=== PATIENT | female | born 1955 | race Caucasian/White ===

== ENCOUNTER 2016-09-17 11:46 | Emergency (ER) | payer BC ==
[2016-09-17 11:57] VITALS: BP 128/85
[2016-09-17] MEDS ORDERED: Sodium Chloride 0.9% 10 ML Syringe FLUSH PRN ×2 (12:09→12:26)
--- NOTE | 2016-09-17 12:22 | EDM.PDOC ---
ED HISTORY OF PRESENT ILLNESS - General Chief Complaint: Respiratory Problem Stated Complaint: SOB Time Seen by Provider: 09/17/16 12:00 Source of Information: Reports: Patient History Limitations: Reports: No limitations - History of Present Illness INITIAL COMMENTS - FREE TEXT/NARRATIVE: Patient presents for evaluation and treatment of shortness of breath. Patient reports the shortness of breath started yesterday. She states it is worse with exertion. She also noticed an odd sensation, described as a pulling sensation, in her left hand traveling up to her left arm. She states that she noticed the sensation while showering yesterday and again today. She also reports some heartburn. She denies any chest pain, dizziness, lightheadedness, syncope, nausea or vomiting. Patient reports that she has had a history of PEs in the past. She states that her symptoms today feel similar to past PEs. Her last PE was in August 5 years ago. She states that she has been worked up for any blood clotting disorders but none have been found. She previously was on Coumadin for her PEs. patient for such she had bunion surgery with Dr. Faria in July. She was on Lovenox for 14 days after the surgery. She states since then she has been taking 325 mg aspirin twice a day. - Related Data Allergies/ADRs: Allergies Allergy/AdvReac Type Severity Reaction Status Date / Time No Known Allergies Allergy Verified 09/17/16 11:57 Home Meds: Home Meds Aspirin [Halfprin] 325 mg PO BID 08/03/16 [History] Escitalopram Oxalate 10 mg PO DAILY 08/03/16 [History] Multivitamin [Multivitamins] 1 tab PO DAILY 08/03/16 [History] Cyclobenzaprine [Flexeril] 10 mg PO TID PRN #40 tablet 08/04/16 [Rx] Hydrocodone/Acetaminophen [[place] 5-325 Tablet] 1 - 2 each PO Q6H PRN #40 tablet 08/04/16 [Rx] Apixaban [Eliquis] 5 mg PO BID #60 tablet 09/17/16 [Rx] Past Medical History HEENT History: Reports: Impaired vision Cardiovascular History: Reports: High cholesterol Respiratory History: Reports: PE, Other (see below) Other Respiratory History: cough, URI Gastrointestinal History: Reports: None Genitourinary History: Reports: Renal calculus, Other (see below) Other Genitourinary History: hematuria TALEND DEVELOPER History: Reports: None Neurological History: Reports: None Psychiatric History: Reports: Anxiety, Depression Endocrine/Metabolic History: Reports: None Hematologic History: Reports: Other (see below) Other Hematologic History: leukopenia, blood clotting disorder Immunologic History: Reports: None Oncologic (Cancer) History: Reports: None Dermatologic History: Reports: None - Past Surgical History Female Surgical History: Reports: Tubal ligation Musculoskeletal Surgical History: Reports: Arthroscopic knee, Other (see below) Other Musculoskeletal Surgeries/Procedures:: L bunionectomy, R bunionectomy in Jul 2016 Social & Family History - Tobacco Use Smoking Status *Q: Never Smoker Second Hand Smoke Exposure: No - Caffeine Use Caffeine Use: Reports: Coffee - Alcohol Use Days Per Week of Alcohol Use: 1 Number of Drinks Per Day: 2 Total Drinks Per Week: 2 - Recreational Drug Use Recreational Drug Use: No Drug Use in Last 12 Months: No ED ROS GENERAL - Review of Systems Review Of Systems: See Below Respiratory: Reports: Shortness of Breath Cardiovascular: Denies: Chest pain, Lightheadedness GI/Abdominal: Reports: Other (reports heartburn). Denies: Nausea, Vomiting Musculoskeletal: Reports: hand pain (pulling sensation to the left hand into left arm) Neurological: Denies: Dizziness, Syncope ED EXAM, GENERAL - Physical Exam Exam: See Below Exam Limited By: No limitations General Appearance: alert, WD/WN, no apparent distress Respiratory/Chest: no respiratory distress, lungs clear, normal breath sounds Cardiovascular: normal peripheral pulses, regular rate, rhythm, no murmur GI/Abdominal: soft, non tender Neurological: alert, oriented, normal cognition Psychiatric: normal affect, normal mood Skin Exam: Warm, Dry, Normal color EKG INTERPRETATION EKG Date: 09/17/16 Time: 13:15 Rhythm: NSR Rate (beats/min): 64 [place]: normal P-wave: present QRS: normal ST-T: normal QT: normal EKG Interpretation Comments: NSR at 64 bpm. Q waves in V1 and V2 - old anteroseptal OH. Reviewed by myself and Dr. Hargrove. Course - Vital Signs Last Recorded V/S: Last Vital Signs Temp 36.3 C 09/17/16 11:52 Pulse 85 09/17/16 11:52 Resp 22 H 09/17/16 11:52 BP 128/85 09/17/16 11:52 Pulse Ox 98 09/17/16 13:00 - Orders/Labs/Meds Orders: Active Orders 24 hr Category Date Time Status Cardiac Monitoring [RC] . DIRECTED Care 09/17/16 12:09 Active EKG 12 Lead [EKG Documentation Completion] [RC] STAT Care 09/17/16 13:05 Active Peripheral IV Care [RC] . DIRECTED Care 09/17/16 12:10 Active Peripheral IV Insertion Adult [OM.PC] Routine Oth 09/17/16 12:09 Ordered Labs: Laboratory Tests 09/17/16 09/17/16 09/17/16 Range/Units 12:15 12:15 12:15 WBC 4.94 (3.98-10.04) K/mm3 RBC 4.55 (3.98-5.22) M/mm3 Hgb 14.0 (11.2-15.7) gm/L Hct 41.9 (34.1-44.9) % MCV 92.1 (79.4-94.8) fl MCH 30.8 (25.6-32.2) pg MCHC 33.4 (32.2-35.5) g/dl RDW Std Deviation 45.7 (36.4-46.3) fL Plt Count 283 (182-369) K/mm3 MPV 10.3 (9.4-12.3) fl Neut % (Auto) 52.7 (34.0-71.1) % Lymph % (Auto) 31.6 (19.3-51.7) % [place] % (Auto) 11.9 (4.7-12.5) % Eos % (Auto) 3.2 (0.7-5.8) Baso % (Auto) 0.4 (0.1-1.2) % Neut # (Auto) 2.60 (1.56-6.13) K/mm3 Lymph # (Auto) 1.56 (1.18-3.74) K/mm3 [place] # (Auto) 0.59 H (0.24-0.36) K/mm3 Eos # (Auto) 0.16 (0.04-0.36) K/mm3 Baso # (Auto) 0.02 (0.01-0.08) K/mm3 PT 9.7 (8.0-13.0) SECONDS INR 0.90 D-Dimer, Quantitative 3.43 H (0.19-0.59) mg/L Sodium 141 (136-145) mEq/L Potassium 4.8 (3.5-5.1) mEq/L Chloride 106 (98-107) mEq/L Carbon Dioxide 28 (21-32) mEq/L Anion Gap 11.8 (5-15) BUN 16 (7-18) mg/dL Creatinine 1.1 H (0.55-1.02) mg/dL Est Cr Clr Drug Dosing 50.28 mL/min Estimated GFR (MDRD) 50 (>60) mL/min BUN/Creatinine Ratio 14.5 (14-18) Glucose 105 (80-115) mg/dL Calcium 9.2 (8.5-10.1) mg/dL Total Bilirubin 0.6 (0.2-1.0) mg/dL AST 23 (15-37) U/L ALT 30 (14-59) U/L Alkaline Phosphatase 100 (46-116) U/L Troponin I < 0.017 (0.00-0.056) ng/mL Total Protein 7.4 (6.4-8.2) g/dl Albumin 4.0 (3.4-5.0) g/dl Globulin 3.4 gm/dL Albumin/Globulin Ratio 1.2 (1-2) Meds: Medications Discontinued Medications Generic Name Dose Route Start Last Admin Trade Name Freq PRN Reason Stop Dose Admin Enoxaparin Sodium 68 mg 09/17/16 13:39 09/17/16 14:12 Lovenox SUBCUT 09/17/16 13:40 68 mg ONETIME ONE Administration Sodium Chloride 100 mls @ 80 mls/hr 09/17/16 12:30 09/17/16 13:01 Normal Saline IV 80 mls/hr ASDIRECTED PAMELA Administration Iopamidol 100 ml 09/17/16 12:26 09/17/16 13:01 Isovue-370 (76%) IVPUSH 09/17/16 12:27 70 ml ONETIME ONE Administration Sodium Chloride 10 ml 09/17/16 12:09 09/17/16 13:08 Saline Flush FLUSH 10 ml ASDIRECTED PRN Administration Keep Vein Open Sodium Chloride 10 ml 09/17/16 12:26 09/17/16 13:01 Saline Flush FLUSH 10 ml ONETIME PRN Administration IV FLUSH - Radiology Interpretation Free Text/Narrative:: CT PE study impression per Dr. Devine: 1. extensive pulmonary emboli within all 4 lobes. Mild bowing of the interventricular septum is seen compatible with mild right heart strain. 2. Incidental atelectasis or scarring within the right middle. 3. No additional abnormality is seen. CT Results Date: 09/17/16 - Re-Assessments/Exams Free Text/Narrative Re-Assessment/Exam: 09/17/16 13:40 Labs have returned. White blood count 4.9 forthcoming woman is 14.0 platelets are 283. INR 0.90, PT is 9.7. Troponin is within normal limits a less than 0.017. Sodium is 141, potassium is 4.8 and chloride is 106. Anion gap is 11.8. D dimer elevated at 3.43. Discussed case with Dr. Hargrove. Recommends subcutaneous Lovenox in the ED with a look with poorly as an outpatient. Discussed results with the patient. She elects to go with a new anticoagulant versus coumadin. Will give lovenox 1 subQ dose in the ER and have her start eliquis today. Patient has had a full work up for blood disorders. The case was discussed with Dr. Hargrove. We feel she would like benefit from further investigation into malignant causes. Recommends CT of the abdomen and pelvis. This should be done as an outpatient with the patient's primary care provider. I offered the patient admission. She feels comfortable going home with the subcutaneous Lovenox and oral elequis. I did educate her that she should be on these prophylactically for the rest of her life as this is her third pulmonary embolus. I will have her followup with her primary care provider for further management of this. Discharge instructions as documented. Departure - Departure Time of Disposition: 13:42 Disposition: Home, Self-Care 01 Condition: fair Clinical Impression: Pulmonary emboli Prescriptions: Apixaban [Eliquis] 5 mg PO BID #60 tablet Instructions: Pulmonary Embolism Referrals: Shanelle Solorzano PA [Primary Care Provider] - Forms: ED Department Discharge Additional Instructions: Follow-up this week with your PCP. Stop your aspirin. Start eliquis 10mg (2 tabs) PO bid x 7 days then 1 tab (5mg) PO bid. Please return to the ER should your symptoms change or worsen. - My Orders Last 24 Hours: My Active Orders 09/17/16 12:09 Cardiac Monitoring [RC] . DIRECTED Peripheral IV Insertion Adult [OM.PC] Routine 09/17/16 12:10 Peripheral IV Care [RC] . DIRECTED 09/17/16 13:05 EKG 12 Lead [EKG Documentation Completion] [RC] STAT - Assessment/Plan Last 24 Hours: My Active Orders 09/17/16 12:09 Cardiac Monitoring [RC] . DIRECTED Peripheral IV Insertion Adult [OM.PC] Routine 09/17/16 12:10 Peripheral IV Care [RC] . DIRECTED 09/17/16 13:05 EKG 12 Lead [EKG Documentation Completion] [RC] STAT
[2016-09-17] MEDS ORDERED: Iopamidol 755 Mg/ML 100 ML Bottle IVPUSH ONE (12:26)
[2016-09-17] MEDS ORDERED: Sodium Chloride 0.9% 100 ML IV SCH (12:30)
[2016-09-17] MEDS ORDERED: Enoxaparin 60 MG/0.6 ML Syringe SUBCUT ONE (13:39)
--- NOTE | 2016-09-17 13:42 | CT ---
Addendum: In the body of the report it states intra-articular septum which is a voice recognition error. This should read as follows: Mild bowing of the intraventricular septum.... Other portions of the dictation remain the same. --- Addendum1 above dictated on [09/26/2016 11:05] by [Ramírez Devine Hilton J.] --- --- Addendum1 above signed on [09/26/2016 11:06] by [Ramírez Devine Hilton J.] --- --- Original report below dictated on [09/17/2016 13:28] by [Ramírez Devine Hilton J.] --- --- Original report below signed on [09/17/2016 13:40] by [Ramírez Devine, Carlos Cornelius] --- CT chest Technique: Multiple axial sections through the chest are obtained. Intravenous contrast was utilized. Study has been performed as a pulmonary angiogram protocol. Comparison: No previous chest CT, previous chest x-ray of 03/10/16 is available. Findings: Multiple pulmonary emboli are seen. Pulmonary emboli involving the segmental and subsegmental branches in the left upper and left lower lung pulmonary arteries. Pulmonary embolism also noted within the segmental and subsegmental branches of the right upper and right lower lung arteries. These findings appear to be acute. Mild bowing of the intra-articular septum is seen compatible with mild right heart strain. Mediastinum and hilar regions show no adenopathy or mass. No pericardial thickening is seen. Small portion of the visualized upper abdominal structures are within normal limits. Minimal linear density within the right middle lobe compatible with slight atelectasis or scarring is seen. Lungs otherwise are clear. Bone window settings were reviewed which appear within normal limits for the patient's age. Impression: 1. Extensive pulmonary emboli within all four lobes. Mild bowing of the interventricular septum is seen compatible with mild right heart strain. 2. Incidental atelectasis or scarring within the right middle lobe. 3. No additional abnormality is seen. Results of the study were discussed by phone with Vonda Aldrich after the exam's completion at time 1:27 PM [facility] Diagnostic code #5 --- Addendum1 signed ---
== END 2016-09-17 14:15 | disposition home or self-care (01) ==
LOC: JD.ED 11:46
DX: I26.99 Other pulmonary embolism without acute cor pulmonale (principal); Z86.711 Personal history of pulmonary embolism; Z79.01 Long term (current) use of anticoagulants; E78.00 Pure hypercholesterolemia, unspecified; F32.9 Major depressive disorder, single episode, unspecified; F41.9 Anxiety disorder, unspecified; Z79.82 Long term (current) use of aspirin; Z79.899 Other long term (current) drug therapy
CPT/HCPCS: 36415; 71275; 80053; 84484; 85025; 85379; 85610; 93005; 96372; 99285; J1650; J7030; J7050; Q9967; 99284

== ENCOUNTER 2017-12-18 06:35 | Day surgery (SDC) | payer BC ==
[~2017-12-18 06:35] MED LIST: Lidocaine 1%/Sod Bicarbonate in NS 8.4% 1 ML Syringe IDERM PRN; Sodium Chloride 0.9% 10 ML Syringe FLUSH PRN
[2017-12-18] MEDS ORDERED: ceFAZolin 1 GM Vial ONE (06:53)
[2017-12-18] MEDS ORDERED: Propofol 200 MG/20 ML SDV ONE (06:53)
[2017-12-18] MEDS ORDERED: Midazolam 1 MG/ML 2 ML SDV ONE (06:53)
[2017-12-18] MEDS ORDERED: Ondansetron 4 MG/2 ML SDV ONE (06:53)
[2017-12-18] MEDS ORDERED: fentaNYL 250 MCG/5 ML SDV ONE (06:53)
[2017-12-18] MEDS ORDERED: Lactated Ringers 1,000 ML ONE (06:53)
[2017-12-18] MEDS ORDERED: Dexamethasone 4 MG/ML SDV ONE (06:53)
--- NOTE | 2017-12-18 07:33 | PCM.PREANE ---
Preanesthetic Assessment - Anesthesia/Transfusion/Family Hx Anesthesia History: Prior Anesthesia Without Reaction Family History of Anesthesia Reaction: No Transfusion History: No Prior Transfusion(s) - Review of Systems General: No Symptoms Pulmonary: Other (history of PEs x3. on eliquis, stopped 12/14/17) Cardiovascular: No Symptoms Gastrointestinal: No Symptoms Neurological: No Symptoms Other: Reports: Easy Bruising (on elequis), Anxiety - Physical Assessment NPO Status Date: 12/17/17 NPO Status Time: 19:00 Pulse: 72 O2 Sat by Pulse Oximetry: 98 Respiratory Rate: 16 Blood Pressure: 117/76 Temperature: 98.3 C Weight: 71 kg ASA Class: 2 Mental Status: Alert & Oriented x3 Airway Class: Mallampati = 2 Dentition: Reports: Normal Dentition Thyro-Mental Finger Breadths: 3 Mouth Opening Finger Breadths: 3 ROM/Head Extension: Full Lungs: Normal Respiratory Effort Cardiovascular: Regular Rate, Regular Rhythm - Lab Values: Laboratory Last Values MRSA (PCR) Negative 12/15/17 13:52 - Allergies Allergies/Adverse Reactions: Allergies Allergy/AdvReac Type Severity Reaction Status Date / Time No Known Allergies Allergy Verified 12/15/17 15:32 - Blood Blood Available: No Product(s) Available: None - Anesthesia Plan Pre-Op Medication Ordered: None - Acknowledgements Anesthesia Type Planned: General Anesthesia Pt an Appropriate Candidate for the Planned Anesthesia: Yes Alternatives and Risks of Anesthesia Discussed w Pt/Guardian: Yes Pt/Guardian Understands and Agrees with Anesthesia Plan: Yes PreAnesthesia Questionnaire HEENT History: Reports: Impaired Vision Cardiovascular History: Reports: High Cholesterol Respiratory History: Reports: PE, Other (See Below) Other Respiratory History: cough, URI Gastrointestinal History: Reports: None Genitourinary History: Reports: Renal Calculus, Other (See Below) Other Genitourinary History: hematuria GRID MAKER History: Reports: None Neurological History: Reports: None Psychiatric History: Reports: Anxiety, Depression Endocrine/Metabolic History: Reports: None Hematologic History: Reports: Other (See Below) Other Hematologic History: leukopenia, blood clotting disorder Immunologic History: Reports: None Oncologic (Cancer) History: Reports: None Dermatologic History: Reports: Other (See Below) Other Dermatologic History: cold sores - Past Surgical History Head Surgeries/Procedures: Reports: None Cardiovascular Surgical History: Reports: None Respiratory Surgical History: Reports: None GI Surgical History: Reports: Colonoscopy Female Surgical History: Reports: Tubal Ligation Male Surgical History: Reports: None Endocrine Surgical History: Reports: None Musculoskeletal Surgical History: Reports: Arthroscopic Knee, Other (See Below) Other Musculoskeletal Surgeries/Procedures:: L bunionectomy, R bunionectomy in Jul 2016 Oncologic Surgical History: Reports: None Dermatological Surgical History: Reports: None - SUBSTANCE USE Smoking Status *Q: Never Smoker Recreational Drug Use History: No - HOME MEDS Home Medications: Home Meds Escitalopram Oxalate 10 mg PO DAILY 08/03/16 [History] Multivitamin [Multivitamins] 1 tab PO DAILY 08/03/16 [History] Cyclobenzaprine [Flexeril] 10 mg PO TID PRN #40 tablet 08/04/16 [Rx] Hydrocodone/Acetaminophen [[place] 5-325] 1 - 2 each PO Q6H PRN #40 tablet [Rx] Apixaban [Eliquis] 2.5 mg PO BID 12/15/17 [History] Zolpidem Tartrate [Ambien] 2.5 - 5 mg PO BEDTIME PRN 12/15/17 [History] valACYclovir [Valtrex] 1 gm PO BID 12/15/17 [History] Acetaminophen/oxyCODONE [Percocet 325-5 MG] 1 - 2 each PO Q6H PRN #40 tab [Rx] - CURRENT (IN HOUSE) MEDS Current Meds: Current Medications Lactated Ringer's (Ringers, Lactated) 1,000 mls @ 125 mls/hr IV ASDIRECTED PAMELA Stop: 12/18/17 23:00 Lidocaine/Sodium Bicarbonate (Buffered Lidocaine 1% In Ns 8.4%) 0.25 ml IDERM ONETIME PRN PRN Reason: Prior to IV Start Stop: 12/18/17 18:00 Sodium Chloride (Saline Flush) 10 ml FLUSH ASDIRECTED PRN PRN Reason: Keep Vein Open Stop: 12/18/17 18:00 Discontinued Medications Bupivacaine HCl (Marcaine 0.25%) Confirm Administered Dose 30 ml .ROUTE .STK- MED ONE Stop: 12/18/17 07:15 Cefazolin Sodium (Ancef) Confirm Administered Dose 2 gm .ROUTE .STK-MED ONE Stop: 12/18/17 06:54 Dexamethasone (Dexamethasone) Confirm Administered Dose 4 mg .ROUTE .STK-MED ONE Stop: 12/18/17 06:54 Fentanyl (Sublimaze) Confirm Administered Dose 250 mcg .ROUTE .STK-MED ONE Stop: 12/18/17 06:54 Lactated Ringer's (Ringers, Lactated) Confirm Administered Dose 1,000 mls @ as directed .ROUTE .STK-MED ONE Stop: 12/18/17 06:54 Midazolam HCl (Versed 1 Mg/Ml) Confirm Administered Dose 2 mg .ROUTE .STK-MED ONE Stop: 12/18/17 06:54 Ondansetron HCl (Zofran) Confirm Administered Dose 4 mg .ROUTE .STK-MED ONE Stop: 12/18/17 06:54 Propofol (Diprivan 20 Ml) Confirm Administered Dose 200 mg .ROUTE .STK-MED ONE Stop: 12/18/17 06:54
[2017-12-18] MEDS: Lactated Ringers 1,000 ML IV SCH ×2 (07:35→11:44)
[2017-12-18] MEDS: Bupivacaine 0.25% 30 ML SDV ONE ×2 (08:06→10:48)
[2017-12-18] MEDS ORDERED: HYDROmorphone 0.5 MG/0.5 ML Syringe ONE ×2 (08:33→08:55)
[2017-12-18] MEDS ORDERED: ePHEDrine/Normal Saline 25 MG/5 ML Syringe ONE (08:51)
[2017-12-18] MEDS ORDERED: Ketorolac 30 MG/ML SDV ONE (10:28)
[2017-12-18] MEDS ORDERED: HYDROmorphone 0.5 MG/0.5 ML Syringe IVPUSH PRN (10:47)
[2017-12-18] MEDS ORDERED: Ondansetron 4 MG/2 ML SDV IVPUSH PRN (10:47)
[2017-12-18] MEDS ORDERED: fentaNYL 100 MCG/2 ML SDV IVPUSH PRN ×2 (10:47→11:29)
--- NOTE | 2017-12-18 11:13 | PCM.POSTAN ---
POST ANESTHESIA ASSESSMENT - MENTAL STATUS Mental Status: Alert, Oriented - VITAL SIGNS Pulse Rate: 102 SaO2: 94 Resp Rate: 19 Blood Pressure: 132/72 Temperature: 36.6 C - RESPIRATORY Respiratory Status: Respiratory Rate WNL, Airway Patent, O2 Saturation Stable, Supplemental Oxygen - CARDIOVASCULAR CV Status: Pulse Rate WNL, Blood Pressure Stable - GASTROINTESTINAL GI Status: No Symptoms - PAIN Pain Score: 0 - POST OP HYDRATION Hydration Status: Adequate & Stable
[2017-12-18] MEDS ORDERED: Cyclobenzaprine 10 MG Tab PO PRN (12:34)
[2017-12-18] MEDS ORDERED: Acetaminophen/oxyCODONE 325-5 MG Tab PO PRN (12:34)
--- NOTE | 2017-12-18 14:42 | PCM48HPAN ---
Post Anesthesia Note - EVALUATION WITHIN 48HRS OF ANESTHETIC Vital Signs in Normal Range: Yes Patient Participated in Evaluation: Yes Respiratory Function Stable: Yes Airway Patent: Yes Cardiovascular Function Stable: Yes Hydration Status Stable: Yes Pain Control Satisfactory: Yes Nausea and Vomiting Control Satisfactory: Yes Mental Status Recovered: Yes Pulse Rate: 74 SaO2: 97 Resp Rate: 14 Temperature: 97.9 F Blood Pressure: 123/74
[2017-12-18 15:10] VITALS: BP 132/84
--- NOTE | 2017-12-18 15:57 | CR ---
Left ankle and foot: Multiple fluoroscopic spot views were obtained of the left ankle and foot utilizing C-arm device. Comparison: Prior CT exam of 12/12/17. Study shows plate and screw placement within the lateral malleolus affixing previous fracture. Fixation is also seen at the base of the first, second and third metatarsals affixing previous fractures. Fluoroscopy time given as 81.0 seconds. Impression: 1. Operative study showing fixation of previously noted fractures. Diagnostic code #2
--- NOTE | 2017-12-22 10:55 | PCM.OPNOTE ---
- General Post-Op/Procedure Note Date of Surgery/Procedure: 12/18/17 Operative Procedure(s): open reduction internal fixation of left distal fibula and syndesmosis along with left lisfranc injury with fixation of first, second and third tarsometatarsal joints Pre Op Diagnosis: left bimalleolar equivalent ankle fracture with lisfranc injury left foot Post-Op Diagnosis: Same Anesthesia Technique: General LMA, Local Primary Surgeon: Srinivas Faria Anesthesia Provider: Najma Winslow Thread Milling Machine Set Up Operator: Delphine Camacho in mLs: 10 Complications: None Condition: Good
--- NOTE | 2017-12-25 11:47 | OR ---
DATE OF OPERATION: 12/18/2017 SURGEON: Srinivas Faria MD OPERATION PERFORMED: 1. Open reduction and internal fixation, left distal fibula and syndesmosis ankle fracture. 2. Open reduction and internal fixation of left Lisfranc injury with fixation of first, second, and third tarsometatarsal joints. PREOPERATIVE DIAGNOSIS: Left bimalleolar equivalent ankle fracture with Lisfranc injury, left foot. POSTOPERATIVE DIAGNOSIS: Left bimalleolar equivalent ankle fracture with Lisfranc injury, left foot. ANESTHESIA: General LMA with local. ANESTHESIA PROVIDER: Najma Winslow CRNA. SEGMENT ASSEMBLER: Delphine Camacho PA-C. ESTIMATED BLOOD LOSS: 10 mL. COMPLICATIONS: None. CONDITION: Stable. DESCRIPTION OF PROCEDURE: The patient was identified in the preoperative holding area. Proper site was marked and identified by the surgeon. The patient was taken back to the operating theater, where after adequate anesthesia, the patient's left lower extremity had a nonsterile tourniquet applied and it was then sterilely prepped and draped in the usual sterile fashion. OR time-out was performed. The patient received 2 g IV Ancef. At this time, left lower extremity was exsanguinated. Tourniquet was insufflated to 250 mmHg. Standard lateral incision was made to the distal fibula. This was taken down to the fracture site, where fracture site was identified, it was curetted and rongeured. Fracture hematoma at this time, [id number] reduction clamp was used and a 2.7 lag screw was then placed across the joint. At this time, a titanium and fibular plate were then placed and bent to the proper contour. Six cortices were obtained proximally and then 2 syndesmotic screws were placed distally after one 3.5 cortical screw was placed. At this time, it was found to have adequate yazidism of the ankle mortise and stress view was negative. At this time, adequate saline was irrigated through the wound and the wound was covered. Attention was turned to the foot. The foot was stressed. The patient was noted to have significant instability of the first, second, and third tarsometatarsal joints. At this time, dorsal incision was made between the first and second in line with the second ray. This was taken down. Blunt dissection was used to go below the neurovascular bundle. The first tarsometatarsal joint was identified and was noted to be grossly loose. At this time, I did decide to use a [place] T-plate which was found to be in a good position and had adequate yazidism of the first tarsometatarsal joint. At this time, the 2.7 screws were placed to secure the plate both locking and nonlocking and had adequate reduction on both AP and lateral views. Attention was turned to the Lisfranc joint. At this time, a 3.5 cortical screw was placed across from the medial cuneiform all the way into the base of the second metatarsal and then this had good lag effect with adequate yazidism of the Lisfranc joint. At this time, another 2.7 straight plate was placed over the dorsum of the second tarsometatarsal joint and this was secured showing adequate yazidism on both AP and lateral views. Attention was turned to the third, there was noted to be a significant comminuted fracture of the base of the third and again this was bridged with the 2.3 [employer] locking plate from [place]. Both locking and nonlocking screws were secured the plate in place and there was adequate yazidism of the joint as well as the fracture. At this time, the 4th was noted to be stable as well as the 5th. Adequate saline was irrigated through the wounds. 3-0 Vicryl was used subcutaneously on the foot, 2-0 Vicryl was used subcutaneously on the ankle, and nylon was used for closure of the skin. The patient tolerated the procedure well and was sent to PACU in stable condition after a sterile soft dressing and a posterior slab splint were applied. RENA /[id number]
== END 2017-12-18 15:02 | disposition home or self-care (01) ==
LOC: JD.SDS 06:35
PROVIDERS: ATTEND Orthopaedic Surgery
DX: S82.842A Displaced bimalleolar fracture of left lower leg, initial encounter for closed fracture (principal); S93.325A Dislocation of tarsometatarsal joint of left foot, initial encounter; G47.00 Insomnia, unspecified; E78.5 Hyperlipidemia, unspecified; E78.00 Pure hypercholesterolemia, unspecified; F32.9 Major depressive disorder, single episode, unspecified; F41.9 Anxiety disorder, unspecified; Z79.01 Long term (current) use of anticoagulants; Z79.899 Other long term (current) drug therapy; X58.XXXA Exposure to other specified factors, initial encounter
CPT/HCPCS: 01480; 76000; 76000-26; 87641; A9270-GY; C1713; C1769; C1776; J0690; J1100; J1170; J1885; J2250; J2405; J2704; J3010; J3490; J7050; J7120

== ENCOUNTER 2018-08-02 07:43 | Day surgery (SDC) | payer BC ==
[~2018-08-02 07:43] MED LIST changes: +Lactated Ringers 1,000 ML IV SCH
[2018-08-02] MEDS ORDERED: Midazolam 1 MG/ML 2 ML SDV ONE (08:06)
[2018-08-02] MEDS ORDERED: fentaNYL 100 MCG/2 ML SDV ONE (08:06)
[2018-08-02] MEDS ORDERED: Ketamine 500 mg/10 ML MDV ONE (08:06)
[2018-08-02] MEDS ORDERED: Propofol 200 MG/20 ML SDV ONE ×2 (08:06→09:54)
[2018-08-02] MEDS ORDERED: Ketorolac 30 MG/ML SDV ONE (08:07)
[2018-08-02] MEDS ORDERED: Ondansetron 4 MG/2 ML SDV ONE (08:07)
[2018-08-02] MEDS ORDERED: Dexamethasone 4 MG/ML SDV ONE ×2 (08:07→09:18)
[2018-08-02] MEDS ORDERED: Lidocaine 1% 4 ML ONE (08:07)
[2018-08-02] MEDS ORDERED: Scopolamine 1.5 MG Transdermal Patch TOP ONE (08:31)
--- NOTE | 2018-08-02 08:47 | PCM.PREANE ---
Preanesthetic Assessment - Anesthesia/Transfusion/Family Hx Anesthesia History: Prior Anesthesia Reaction Type of Anesthesia Reaction: Excessive Nausea/Vomiting Transfusion History: No Prior Transfusion(s) - Review of Systems General: No Symptoms Pulmonary: No Symptoms, Other (History of PE x3. Stopped Eliquis on 07/30/2018) Cardiovascular: No Symptoms Gastrointestinal: No Symptoms Neurological: Difficulty Walking (Walks with limp since ankle surgery in December. ) Other: Reports: Anxiety - Physical Assessment NPO Status Date: 08/01/18 NPO Status Time: 22:00 O2 Sat by Pulse Oximetry: 97 Respiratory Rate: 16 Vital Signs: Last Vital Signs Temp 36.7 C 08/02/18 07:45 Pulse 79 08/02/18 07:45 Resp 16 08/02/18 07:45 BP 104/83 08/02/18 07:45 Pulse Ox 97 08/02/18 07:45 Height: 1.68 m Weight: 71.668 kg ASA Class: 2 Mental Status: Alert & Oriented x3 Airway Class: Mallampati = 1 Dentition: Reports: Normal Dentition Thyro-Mental Finger Breadths: 3 Mouth Opening Finger Breadths: 3 ROM/Head Extension: Full Lungs: Clear to Auscultation, Normal Respiratory Effort Cardiovascular: Regular Rate, Regular Rhythm - Allergies Allergies/Adverse Reactions: Allergies Allergy/AdvReac Type Severity Reaction Status Date / Time No Known Allergies Allergy Verified 08/02/18 08:35 - Anesthesia Plan Pre-Op Medication Ordered: Anxiolytic, Other (Scopalamine patch) - Acknowledgements Anesthesia Type Planned: MAC Pt an Appropriate Candidate for the Planned Anesthesia: Yes Alternatives and Risks of Anesthesia Discussed w Pt/Guardian: Yes Pt/Guardian Understands and Agrees with Anesthesia Plan: Yes PreAnesthesia Questionnaire HEENT History: Reports: Impaired Vision Cardiovascular History: Reports: High Cholesterol Respiratory History: Reports: PE, Other (See Below) Other Respiratory History: cough, URI Gastrointestinal History: Reports: None Genitourinary History: Reports: Renal Calculus, Other (See Below) Other Genitourinary History: hematuria 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 Neurological History: Reports: None Psychiatric History: Reports: Anxiety, Depression Endocrine/Metabolic History: Reports: None Hematologic History: Reports: Other (See Below) Other Hematologic History: leukopenia, blood clotting disorder Immunologic History: Reports: None Oncologic (Cancer) History: Reports: None Dermatologic History: Reports: Other (See Below) Other Dermatologic History: cold sores - Past Surgical History Head Surgeries/Procedures: Reports: None Cardiovascular Surgical History: Reports: None Respiratory Surgical History: Reports: None GI Surgical History: Reports: Colonoscopy Female Surgical History: Reports: Tubal Ligation Male Surgical History: Reports: None Endocrine Surgical History: Reports: None Musculoskeletal Surgical History: Reports: Arthroscopic Knee, Other (See Below) Other Musculoskeletal Surgeries/Procedures:: L bunionectomy, R bunionectomy in Jul 2016 Oncologic Surgical History: Reports: None Dermatological Surgical History: Reports: None - SUBSTANCE USE Smoking Status *Q: Never Smoker Recreational Drug Use History: No - HOME MEDS Home Medications: Home Meds Escitalopram Oxalate 10 mg PO DAILY 08/03/16 [History] Multivitamin [Multivitamins] 1 tab PO DAILY 08/03/16 [History] Apixaban [Eliquis] 2.5 mg PO BID 12/15/17 [History] Zolpidem Tartrate [Ambien] 2.5 - 5 mg PO BEDTIME PRN 12/15/17 [History] valACYclovir [Valtrex] 1 gm PO BID PRN 12/15/17 [History] Acetaminophen/HYDROcodone [[place] 325-5 MG] 1 - 2 tab PO Q6H PRN #30 tablet 08/02 [Rx] Fish Oil/[place]-3 Fatty Acids [Fish Oil] 1,000 mg PO DAILY 08/02/18 [History] - CURRENT (IN HOUSE) MEDS Current Meds: Current Medications Lactated Ringer's (Ringers, Lactated) 1,000 mls @ 125 mls/hr IV ASDIRECTED PAMELA Stop: 08/02/18 23:00 Last Admin: 08/02/18 08:38 Dose: 125 mls/hr Lidocaine/Sodium Bicarbonate (Buffered Lidocaine 1% In Ns 8.4%) 0.25 ml IDERM ONETIME PRN PRN Reason: Prior to IV Start Stop: 08/02/18 18:00 Last Admin: 08/02/18 08:38 Dose: 0.25 ml Sodium Chloride (Saline Flush) 10 ml FLUSH ASDIRECTED PRN PRN Reason: Keep Vein Open Stop: 08/02/18 18:00 Discontinued Medications Bupivacaine HCl (Marcaine 0.25%) Confirm Administered Dose 30 ml .ROUTE .STK- MED ONE Stop: 08/02/18 08:35 Dexamethasone (Dexamethasone) Confirm Administered Dose 4 mg .ROUTE .STK-MED ONE Stop: 08/02/18 08:08 Fentanyl (Sublimaze) Confirm Administered Dose 100 mcg .ROUTE .STK-MED ONE Stop: 08/02/18 08:07 Lidocaine HCl (Xylocaine-Mpf 1%) Confirm Administered Dose 4 mls @ as directed .ROUTE .STK-MED ONE Stop: 08/02/18 08:08 Ketamine HCl (Ketalar) Confirm Administered Dose 500 mg .ROUTE .STK-MED ONE Stop: 08/02/18 08:07 Ketorolac Tromethamine (Toradol) Confirm Administered Dose 30 mg .ROUTE .STK- MED ONE Stop: 08/02/18 08:08 Lidocaine HCl (Xylocaine-Mpf 1%) Confirm Administered Dose 30 ml .ROUTE .STK- MED ONE Stop: 08/02/18 08:35 Midazolam HCl (Versed 1 Mg/Ml) Confirm Administered Dose 2 mg .ROUTE .STK-MED ONE Stop: 08/02/18 08:07 Ondansetron HCl (Zofran) Confirm Administered Dose 4 mg .ROUTE .STK-MED ONE Stop: 08/02/18 08:08 Propofol (Diprivan 20 Ml) Confirm Administered Dose 600 mg .ROUTE .STK-MED ONE Stop: 08/02/18 08:07 Scopolamine (Transderm-Scop) 1.5 mg TOP ONETIME ONE Stop: 08/02/18 08:32 Last Admin: 08/02/18 08:40 Dose: 1.5 mg
[2018-08-02] MEDS: Lidocaine 1% 30 ML SDV ONE ×2 (09:32→09:47)
[2018-08-02] MEDS: Bupivacaine 0.25% 30 ML SDV ONE ×2 (09:32→09:46)
--- NOTE | 2018-08-02 10:31 | PCM48HPAN ---
Post Anesthesia Note - EVALUATION WITHIN 48HRS OF ANESTHETIC Vital Signs in Normal Range: Yes Patient Participated in Evaluation: Yes Respiratory Function Stable: Yes Airway Patent: Yes Cardiovascular Function Stable: Yes Hydration Status Stable: Yes Pain Control Satisfactory: Yes Nausea and Vomiting Control Satisfactory: Yes Mental Status Recovered: Yes Pulse Rate: 87 SaO2: 95 Resp Rate: 16 Temperature: 36.4 C Blood Pressure: 97/59
[2018-08-02] MEDS ORDERED: Acetaminophen/HYDROcodone 325-5 MG Tab PO PRN (10:42)
--- NOTE | 2018-08-02 10:44 | CR ---
Left ankle: Three fluoroscopic spot views were obtained of the left ankle as well as left mid foot. Study obtained utilizing C-arm device. Comparison: Previous study of 12/18/17. Removal of hardware within the left ankle is noted. Lucent defects from previous hardware placement is incidentally noted. Ankle mortise is symmetric. Plate and screws remain within the tarsometatarsal joints of the first through third digits. Fluoroscopy time given as 18.6 seconds. Impression: 1. Procedural study as noted above. Diagnostic code #2
[2018-08-02 12:17] VITALS: BP 118/76
--- NOTE | 2018-08-06 08:08 | PCM.OPNOTE ---
- General Post-Op/Procedure Note Date of Surgery/Procedure: 08/02/18 Operative Procedure(s): left ankle and foot deep hardware removal Pre Op Diagnosis: left ankle and foot painful hardware Post-Op Diagnosis: Same Anesthesia Technique: Local, MAC Primary Surgeon: Srinivas Faria Anesthesia Provider: Kerry Birch Full Stack Engineer: Delphine Camacho in mLs: 5 Complications: None Condition: Good
--- NOTE | 2018-08-06 12:09 | OR ---
DATE OF OPERATION: 08/02/2018 SURGEON: Srinivas Faria MD OPERATION PERFORMED: Left ankle and foot deep hardware removal. PREOPERATIVE DIAGNOSIS: Left ankle and foot painful hardware. POSTOPERATIVE DIAGNOSIS: Left ankle and foot painful hardware. ANESTHESIA: Local, MAC. ANESTHESIA PROVIDER: Sherri Monet. AP PROCESSOR: Delphine Camacho PA-C ESTIMATED BLOOD LOSS: Less than 5 mL. COMPLICATIONS: None. CONDITION: Stable. DESCRIPTION OF PROCEDURE: The patient was identified in the preop holding area where the proper site was marked and identified by the surgeon. The patient was taken back to the operating theater, where after adequate anesthesia, the patient's left lower extremity was sterilely prepped and draped in the usual sterile fashion. OR time-out was performed. The patient received 2 g of IV Ancef. At this time, the left lower extremity was exsanguinated and tourniquet was insufflated to 250 mmHg. At this time, an ankle block was performed using 0.25% Marcaine without epinephrine and 1% lidocaine without epinephrine. Once this had set up, an incision was made over the medial incision for the foot for the compression screw across the Lisfranc joint. At this time, it was identified. A bigger incision did have to be made because there was some overgrowth of the bone. The overgrown bone was then resected, and the screw was removed in whole. At this time, attention was turned to the ankle hardware. An incision was made through the previous old incision. This was taken down to the plate. All screws were then removed including the lag screw. The rough edges were then rongeured and curetted to smooth surfaces. All previous screw holes were curetted. Adequate saline was irrigated through the wound. 2-0 Vicryl was used subcutaneously, and madisyn used for the skin. The patient then had a sterile soft dressing applied, was placed in a Cam boot, and sent to the PACU in stable condition. MMODAL /[id number]
== END 2018-08-02 12:06 | disposition home or self-care (01) ==
LOC: JD.SDS 07:43
PROVIDERS: ATTEND Orthopaedic Surgery
DX: T84.84XA Pain due to internal orthopedic prosthetic devices, implants and grafts, initial encounter (principal); N18.3 Chronic kidney disease, stage 3 (moderate); E78.5 Hyperlipidemia, unspecified; F41.9 Anxiety disorder, unspecified; F32.9 Major depressive disorder, single episode, unspecified; Z79.01 Long term (current) use of anticoagulants; Z79.899 Other long term (current) drug therapy
CPT/HCPCS: 20680; 76000; A9270; J1100; J1885; J2001; J2250; J2405; J2704; J3010; J3490; J7120

== ENCOUNTER → 2019-10-28 | Day surgery (SDC) | payer BC, OTHER ==
[~2019-10-28] MED LIST changes: +Bupivacaine 0.25% 10 ML SDV ONE; +Dexamethasone 4 MG/ML 5 ML MDV ONE; +Ketorolac 30 MG/ML SDV ONE; +Lactated Ringers 1,000 ML ONE; +Lidocaine 1% 30 ML SDV ONE; +Lidocaine 1% 4 ML ONE; +Midazolam 1 MG/ML 2 ML SDV ONE; +Ondansetron 4 MG/2 ML SDV IVPUSH PRN; +Ondansetron 4 MG/2 ML SDV ONE; +Propofol 200 MG/20 ML SDV ONE; +Scopolamine 1.5 MG Transdermal Patch TOP SCH; +ceFAZolin 1 GM Vial ONE; +fentaNYL 100 MCG/2 ML SDV IVPUSH PRN; +fentaNYL 100 MCG/2 ML SDV ONE
--- NOTE | 2019-10-28 08:35 | PCM.PREANE ---
Preanesthetic Assessment - Procedure Proposed Procedure: left foot hardware removal - Anesthesia/Transfusion/Family Hx Anesthesia History: Prior Anesthesia Reaction Type of Anesthesia Reaction: Excessive Nausea/Vomiting Transfusion History: No Prior Transfusion(s) - Review of Systems General: No Symptoms Pulmonary: No Symptoms Cardiovascular: No Symptoms Gastrointestinal: No Symptoms Neurological: No Symptoms Other: Reports: Easy Bruising, Depression, Anxiety - Physical Assessment NPO Status Date: 10/27/19 NPO Status Time: 21:00 Vital Signs: 103/68 57 95% 16 Height: 5 ft 6 in Weight: 69 kg ASA Class: 2 Mental Status: Alert & Oriented x3 Airway Class: Mallampati = 1 Dentition: Reports: Normal Dentition Thyro-Mental Finger Breadths: 3 Mouth Opening Finger Breadths: 3 ROM/Head Extension: Full Lungs: Clear to Auscultation, Normal Respiratory Effort Cardiovascular: Regular Rate, Regular Rhythm - Lab Values: Laboratory Last Values SARS Virus RNA (PCR) Negative (NEGATIVE) 10/24/19 10:00 MRSA (PCR) Negative 10/16/19 16:18 - Allergies Allergies/Adverse Reactions: Allergies Allergy/AdvReac Type Severity Reaction Status Date / Time No Known Allergies Allergy Verified 10/27/19 12:52 - Blood Blood Available: No - Acknowledgements Anesthesia Type Planned: MAC Pt an Appropriate Candidate for the Planned Anesthesia: Yes Alternatives and Risks of Anesthesia Discussed w Pt/Guardian: Yes Pt/Guardian Understands and Agrees with Anesthesia Plan: Yes PreAnesthesia Questionnaire HEENT History: Reports: Impaired Vision Cardiovascular History: Reports: High Cholesterol Respiratory History: Reports: PE, Other (See Below) Other Respiratory History: cough, URI Gastrointestinal History: Reports: None Genitourinary History: Reports: Renal Calculus, Other (See Below) Other Genitourinary History: hematuria 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 Musculoskeletal History: Reports: None Neurological History: Reports: None Psychiatric History: Reports: Anxiety, Depression Endocrine/Metabolic History: Reports: None Hematologic History: Reports: Other (See Below) Other Hematologic History: leukopenia, blood clotting disorder Immunologic History: Reports: None Oncologic (Cancer) History: Reports: None Dermatologic History: Reports: Other (See Below) Other Dermatologic History: cold sores - Infectious Disease History Infectious Disease History: Reports: None - Past Surgical History Head Surgeries/Procedures: Reports: None HEENT Surgical History: Reports: LASIK Cardiovascular Surgical History: Reports: None Respiratory Surgical History: Reports: None GI Surgical History: Reports: Colonoscopy Female Surgical History: Reports: Tubal Ligation Male Surgical History: Reports: None Endocrine Surgical History: Reports: None Neurological Surgical History: Reports: None Musculoskeletal Surgical History: Reports: Arthroscopic Knee, ORIF, Other (See Below) Other Musculoskeletal Surgeries/Procedures:: L bunionectomy, R bunionectomy in Jul 2016 Oncologic Surgical History: Reports: None Dermatological Surgical History: Reports: None - SUBSTANCE USE Smoking Status *Q: Never Smoker Tobacco Use Within Last Twelve Months: No Second Hand Smoke Exposure: No Days Per Week of Alcohol Use: 1 Recreational Drug Use History: No - HOME MEDS Home Medications: Home Meds Escitalopram Oxalate 10 mg PO DAILY 08/03/16 [History] Multivitamin [Multivitamins] 1 tab PO DAILY 08/03/16 [History] Apixaban [Eliquis] 2.5 mg PO BID 12/15/17 [History] Zolpidem Tartrate [Ambien] 2.5 - 5 mg PO BEDTIME PRN 12/15/17 [History] valACYclovir [Valtrex] 2 gm PO BID PRN 12/15/17 [History] Fish Oil/[place]-3 Fatty Acids [Fish Oil] 1,000 mg PO DAILY 08/02/18 [History] Cholecalciferol (Vitamin D3) [Vitamin D3] 5,000 unit PO DAILY 10/27/19 [History] Vitamin B Complex 1 tab PO DAILY 10/27/19 [History] - CURRENT (IN HOUSE) MEDS Current Meds: Current Medications Lactated Ringer's (Ringers, Lactated) 1,000 mls @ 125 mls/hr IV ASDIRECTED PAMELA Stop: 10/28/19 23:00 Lidocaine/Sodium Bicarbonate (Buffered Lidocaine 1% In Ns 8.4%) 0.25 ml IDERM ONETIME PRN PRN Reason: Prior to IV Start Stop: 10/28/19 18:00 Scopolamine (Transderm-Scop) 1.5 mg TOP ONETIME PAMELA Stop: 10/28/19 18:00 Sodium Chloride (Saline Flush) 10 ml FLUSH ASDIRECTED PRN PRN Reason: Keep Vein Open Stop: 10/28/19 18:00 Discontinued Medications Dexamethasone (Dexamethasone) Confirm Administered Dose 20 mg .ROUTE .STK-MED ONE Stop: 10/28/19 07:47 Fentanyl (Sublimaze) Confirm Administered Dose 100 mcg .ROUTE .STK-MED ONE Stop: 10/28/19 07:47 Lidocaine HCl (Xylocaine-Mpf 1%) Confirm Administered Dose 4 mls @ as directed .ROUTE .STK-MED ONE Stop: 10/28/19 07:46 Ketorolac Tromethamine (Toradol) Confirm Administered Dose 30 mg .ROUTE .STK- MED ONE Stop: 10/28/19 07:47 Midazolam HCl (Versed 1 Mg/Ml) Confirm Administered Dose 2 mg .ROUTE .STK-MED ONE Stop: 10/28/19 07:47 Propofol (Diprivan 20 Ml) Confirm Administered Dose 200 mg .ROUTE .STK-MED ONE Stop: 10/28/19 07:46
--- NOTE | 2019-10-28 11:37 | PCM48HPAN ---
Post Anesthesia Note - EVALUATION WITHIN 48HRS OF ANESTHETIC Vital Signs in Normal Range: Yes Patient Participated in Evaluation: Yes Respiratory Function Stable: Yes Airway Patent: Yes Cardiovascular Function Stable: Yes Hydration Status Stable: Yes Pain Control Satisfactory: Yes (denies) Nausea and Vomiting Control Satisfactory: Yes Mental Status Recovered: Yes Vital Signs: Last Vital Signs Temp 97.5 F 10/28/19 08:05 Pulse 57 L 10/28/19 08:05 Resp 16 10/28/19 08:05 BP 103/68 10/28/19 08:05 Pulse Ox 95 10/28/19 08:05 1132 100/64 54 18 97.1 98%
[2019-10-28 11:44] VITALS: PULSE 54
--- NOTE | 2019-10-28 13:34 | CR ---
Left foot: 3 fluoroscopic spot views were obtained of the left foot. Study obtained utilizing C-arm device. Comparison: Prior left foot study of 12/18/[address] left foot study of 12/12/17. Orthopedic hardware seen previously shows evidence of removal on this exam. Fluoroscopy time is given as 12.4 seconds. Impression: 1. Procedural study as noted above. Diagnostic code #2 This report was dictated in MDT
[2019-10-28 16:21] VITALS: BP 123/50
--- NOTE | 2019-10-28 17:41 | PCM.OPNOTE ---
- General Post-Op/Procedure Note Date of Surgery/Procedure: 10/28/19 Operative Procedure(s): deep hardware removal of left foot Pre Op Diagnosis: painful hardware left foot Post-Op Diagnosis: Same Anesthesia Technique: MAC, Regional Block Primary Surgeon: Srinivas Faria Anesthesia Provider: Najma Winslow Heel Attacher: Delphine Camacho in mLs: 5 Complications: None Condition: Good Free Text/Narrative:: Intake & Output 10/28/19 10/28/19 10/28/19 06:59 14:59 22:59 Intake Total 200 Balance 200
--- NOTE | 2019-10-31 11:36 | OR ---
DATE OF OPERATION: 10/28/2019 SURGEON: Srinivas Faria MD OPERATION PERFORMED: Deep hardware removal, left foot. PREOPERATIVE DIAGNOSIS: Painful hardware, left foot. POSTOPERATIVE DIAGNOSIS: Painful hardware, left foot. ANESTHESIA: MAC with regional ankle block. ANESTHESIA PROVIDER: Najma Winslow CRNA [employer]IT[employer] PLANT OPERATOR: Delphine Camacho PA-C ESTIMATED BLOOD LOSS: Less than 5 mL. COMPLICATIONS: None. CONDITION: Stable. DESCRIPTION OF PROCEDURE: The patient was identified in the preop holding area. Proper site was marked and identified by the surgeon. The patient was taken back to the operating theater where after adequate anesthesia, the patient's left lower extremity was sterilely prepped and draped in the usual sterile fashion. OR time-out was performed. The patient received 2 g IV Ancef. The left lower extremity was then exsanguinated. Tourniquet was insufflated to 225 mmHg. The first incision on the medial side over the dorsum of the foot was utilized from previous. Skin incision was made, then blunt dissection was taken down to the most medial plate. All 4 screws were removed and the plate was then removed. There was no significant bony prominences. The screw holes were then cleared of any foreign debris. Attention was turned to the second plate over the second ray joint. Again, all 4 screws were removed. The plate was removed. No bony prominences were noted and screw holes were cleared out of debris. The lateral incision was then incised from previous. Blunt dissection was taken down to the last lateral plate. Again, all screws were removed as well as the plate. A curette was used through the screw holes and it was found that all hardware was removed. Adequate saline was irrigated through both incisions. A 3-0 Vicryl was used subcutaneously, nylon was used for closure of the skin. The patient had a sterile soft dressing applied and was placed in a Cam boot and sent to the PACU in stable condition. MMODAL /[id number] [id number]
== END | disposition home or self-care (01) ==
LOC: JD.SDS 08:03
PROVIDERS: ATTEND Orthopaedic Surgery
DX: T84.84XA Pain due to internal orthopedic prosthetic devices, implants and grafts, initial encounter (principal); S82.892D Other fracture of left lower leg, subsequent encounter for closed fracture with routine healing; E78.5 Hyperlipidemia, unspecified; Z20.828 Contact with and (suspected) exposure to other viral communicable diseases; Z79.899 Other long term (current) drug therapy; Z86.711 Personal history of pulmonary embolism; Z79.01 Long term (current) use of anticoagulants; X58.XXXD Exposure to other specified factors, subsequent encounter
CPT/HCPCS: 20680; 36415; 76000; 80048; 87635; 87641; A9270; J0690; J1100; J1885; J2001; J2250; J2405; J2704; J3010; J3490; J7120; 01480; U0002